=== PATIENT | female | born 1965 | race Caucasian/White ===

== ENCOUNTER → 2023-11-25 13:29 | Outpatient (RCR) | payer BC, SELFPAY ==
[2020-06-24 13:58] VITALS: BP 147/78; PULSE 70; RESP 14; TEMP 36.6; O2SAT 100; BMI 24.7
--- NOTE | 2020-06-24 14:10 | PM.HEMONCCN ---
Subjective - Subjective Chief complaint: Anemia Consult date: 06/24/20 Primary Care Provider: Winnie Pierson NP Medical Summary: Diagnosis: Iron deficiency anemia HPI - Consult Narrative Reason for consult: Iron deficiency anemia Narrative: Jewell Prasad is a 55 year old female with a longstanding history of iron deficiency anemia. She has been on oral iron supplementation for many years. She reached menopause about a year ago and no longer has menstrual periods. She has cut back her iron supplementation to once or twice a week. She reports chronic fatigue but no other symptoms such as exertional chest pain, shortness of breath, palpitation or dizziness. She denies hematochezia or melena. She is over due for her screening colonoscopy. There is no family history of anemia. No family history of GI malignancies. Review of Systems - Constitutional Reports as per HPI, Reports no additional constitutional complaints - Cardiovascular Reports no additional cardiovascular complaints - Respiratory Reports no additional respiratory complaints - Gastrointestinal Reports no additional gastrointestinal complaints PMFSH Medical History: Medical History (Last Updated 06/24/20 @ 07:41 by Winnie Benton) HTN (hypertension) Iron deficiency anemia Family History: Family History (Last Updated 06/24/20 @ 14:04 by Winnie Benton) Father Stroke HTN (hypertension) Paternal Uncle Stroke HTN (hypertension) Sister HTN (hypertension) Sister HTN (hypertension) Mother COPD (chronic obstructive pulmonary disease) Surgical History: Surgical History (Last Updated 06/24/20 @ 14:04 by Winnie Benton) History of ear, nose, and throat (ENT) surgery History of tympanostomy tube placement Social History: Social History (Last Updated 06/24/20 @ 14:04 by Winnie Benton) Alcohol History: Alcohol intake: former Alcohol History Details: Alcohol intake frequency: does not drink Tobacco History: Smoking Status: Never smoker Substance Use History: Use of substances other than those prescribed or required for medical reasons: No Smoking status: Never smoker Home Medications and Allergies Home Medications Medication Instructions Recorded Confirmed Type amlodipine 5 mg PO DAILY 06/24/20 06/24/20 History ferrous sulfate 325 mg PO DAILY 06/24/20 06/24/20 History multivitamin with iron 1 tab PO DAILY 06/24/20 06/24/20 History Allergies Allergy/AdvReac Type Severity Reaction Status Date / Time No Known Allergies Allergy Unverified 12/14/19 15:28 [No Known Allergies*] Physical Exam Vital signs: Vital Signs Temp 97.9 F 06/24/20 13:58 Pulse 70 06/24/20 13:58 Resp 14 06/24/20 13:58 BP 147/78 H 06/24/20 13:58 Pulse Ox 100 06/24/20 13:58 Intake & Output 06/23/20 06/24/20 06/24/20 18:59 06:59 18:59 Other: Weight 55.5 kg [place] Weight in Grams [id number] Weight 55.5 kg - Constitutional Present: no acute distress - Routine HEENT Exam Head: Present: normal inspection Eye: Present: EOMI, PERRL - Routine Neck Exam Absent: lymphadenopathy - Routine Respiratory Exam Present: CTAB - Routine Cardiovascular Exam Cardiovascular: Present: S1, S2 Hem/Onc Consult Result - Labs CBC & Chem 7: 06/24/20 14:23 Assessment and Plan (1) Iron (Fe) deficiency anemia Status: Resolved 1. This is a 55-year-old woman with history of chronic iron deficiency anemia. She was on iron supplementation daily for many years. She now takes oral iron about once or twice a week only since she reached menopause about a year ago. Her blood work today shows normal iron studies and no evidence of anemia. She was encouraged to go for screening colonoscopy. She can stop iron supplementation and can be monitored closely for recurrence of anemia. Follow-up in 3 months.
[2020-06-24 14:24] LABS: MANUAL DIFF FLAG NO
[2020-06-24 14:33] LABS: Basophils Percent Auto 0.8 % (0-2); Eosinophils Percent Auto 0.8 % (0-4); Hemoglobin 12.3 g/dl (12.0-16.0); Imm Gran Abs Auto 0.01 X10*3/uL (0.00-0.03); Imm Gran Pct Auto 0.2 % (0.0-0.4); Lymphocytes Absolute Auto 1.6 X10*3/uL (1.2-4.9); Lymphocytes Percent Auto 31.7 % (20-40); Mean Corpuscular HGB Conc 31.5 g/dl (31.0-35.0); Mean Corpuscular Hemoglobin 27.4 pg (27.0-33.0); Mean Corpuscular Volume 86.9 fL (80-98); Mean Platelet Volume 9.6 fL (9.4-12.3); Monocytes Absolute Auto 0.4 X10*3/uL (0.1-1.2); Monocytes Percent Auto 7.9 % (2-11); Neutrophils Percent Auto 58.6 % (45-73); Platelet Count 287 X10*3/uL (160-400); Red Blood Count 4.49 X10*6/uL (4.20-5.50); Red Cell Distribution Width 12.4 % (11.0-16.0); Retic HGB Equivalent 31.6 pg (30.0-35.0); Reticulocyte Percent 0.7 % (0.5-1.8); Reticulocytes Absolute 0.033 X10*6/uL (0.026-0.095); White Blood Count 5.1 X10*3/uL (4.8-10.8)
--- NOTE | 2020-06-24 14:38 | MHC.HEMONCMA ---
Patient came in for a consult today, states that she is doing well. She states the reason why she is there is because she wants to stop taking iron pills but when she stops her levels drop to low. Clinical summary was reviewed and updated. Patient had labs and will return in 2 months for a follow up. Patient requested to have a letter stating she was here today, she left before I could give it to her. The letter was placed in the mail today.
[2020-06-24 14:53] LABS: Iron 102 mcg/dL (30-160); Percent Iron Saturation 33 % (15-50); Total Iron Binding Capacity 311 mcg/dL (228-428); Unsaturated Iron Binding 209 ug/dL
[2020-06-24 15:14] LABS: Ferritin 87 ng/mL (10-250)
[2020-06-24 15:37] LABS: Folate > 20.0 ng/mL (> or = 4.0); Vitamin B12 363 pg/mL (200-900)
--- NOTE | 2020-07-18 10:54 | HO.HEMONCTE1 ---
[facility] Telehealth - Telehealth Location of Provider rendering services: Office. Location of Patient: Home Patient Identification confirmed using: Name, : Yes Telehealth Method: Telephone Patient verbally consented to treatment: Yes Patient verbally consented to billing insurance company: Yes Patient informed of any privacy concerns related to visit: Yes Medical Summary - Medical Summary Date of Service: 07/18/20 Chief complaint: Scheduled follow-up Medical Summary: Diagnosis: Iron deficiency anemia Interval History Interval history: This is scheduled tele visit for patient, visit was mainly to discuss blood work from her last visit. She is doing well and has no complaints today. Review of Systems - Constitutional Reports no additional constitutional complaints - Cardiovascular Reports no additional cardiovascular complaints - Respiratory Reports no additional respiratory complaints - Gastrointestinal Reports no additional gastrointestinal complaints Home Medications and Allergies Home Medications Medication Instructions Recorded Confirmed Type amlodipine 5 mg PO DAILY 06/24/20 06/24/20 History ferrous sulfate 325 mg PO DAILY 06/24/20 06/24/20 History multivitamin with iron 1 tab PO DAILY 06/24/20 06/24/20 History Allergies Allergy/AdvReac Type Severity Reaction Status Date / Time No Known Allergies Allergy Unverified 12/14/19 15:28 [No Known Allergies*] Exam Vital signs: Vital Signs Temp 97.9 F 06/24/20 13:58 Pulse 70 06/24/20 13:58 Resp 14 06/24/20 13:58 BP 147/78 H 06/24/20 13:58 Pulse Ox 100 06/24/20 13:58 Weight 55.5 kg Body Mass Index 24.7 Narrative: Patient not examined today - Constitutional Present: no acute distress - Routine HEENT Exam Head: Present: normal inspection - Routine Respiratory Exam Present: CTAB - Routine Cardiovascular Exam Cardiovascular: Present: S1, S2 Data - Labs CBC & Chem 7: 06/24/20 14:23 Labs: 06/24/20 14:23 Complete Blood Count Auto Diff Routine Ferritin Routine IRON PROFILE Routine Reticulocyte Count Routine Vitamin B12 and Folate Routine Laboratory Last Values WBC 5.1 X10*3/uL (4.8-10.8) 06/24/20 14:23 RBC 4.49 X10*6/uL (4.20-5.50) 06/24/20 14:23 Hgb 12.3 g/dl (12.0-16.0) 06/24/20 14:23 Hct 39.0 % (37-47) 06/24/20 14:23 MCV 86.9 fL (80-98) 06/24/20 14:23 MCH 27.4 pg (27.0-33.0) 06/24/20 14: MCHC 31.5 g/dl (31.0-35.0) 06/24/20 14: RDW 12.4 % (11.0-16.0) 06/24/20 14:23 Plt Count 287 X10*3/uL (160-400) 06/24/20 14:23 MPV 9.6 fL (9.4-12.3) 06/24/20 14:23 Immature Gran % (Auto) 0.2 % (0.0-0.4) 06/24/20 14: Neut % (Auto) 58.6 % (45-73) 06/24/20 14:23 Lymph % (Auto) 31.7 % (20-40) 06/24/20 14:23 Sargent % (Auto) 7.9 % (2-11) 06/24/20 14:23 Eos % (Auto) 0.8 % (0-4) 06/24/20 14: Baso % (Auto) 0.8 % (0-2) 06/24/20 14:23 Lymph # (Auto) 1.6 X10*3/uL (1.2-4.9) 06/24/20 14:23 Sargent # (Auto) 0.4 X10*3/uL (0.1-1.2) 06/24/20 14:23 Eos # (Auto) 0.0 X10*3/uL (0.0-0.4) 06/24/20 14:23 Baso # (Auto) 0.0 X10*3/uL (0.0-0.2) 06/24/20 14: Abs Immat Gran (auto) 0.01 X10*3/uL (0.00-0.03) 06/24/20 14: Absolute Neuts (auto) 3.0 X10*3/uL (2.0-8.3) 06/24/20 14: Absolute Nucleated RBC 0.000 X10*3/uL (0.0-0.012) 06/24/20 14:23 Nucleated RBC % (auto) 0.0 /100WBC (0.0-0.2) 06/24/20 14:23 Absolute Retic 0.033 X10*6/uL (0.026-0.095) 06/24/20 14:23 Percent Retic 0.7 % (0.5-1.8) 06/24/20 14:23 Immature Retic Fraction 5.0 % (3.0-15.9) 06/24/20 14:23 Retic Hgb Equivalent 31.6 pg (30.0-35.0) 06/24/20 14:23 Iron 102 mcg/dL (30-160) 06/24/20 14:23 TIBC 311 mcg/dL (228-428) 06/24/20 14:23 % Saturation 33 % (15-50) 06/24/20 14:23 Unsat Iron Binding 209 ug/dL 06/24/20 14:23 Ferritin 87 ng/mL (10-250) 06/24/20 14:23 Vitamin B12 363 pg/mL (200-900) 06/24/20 14:23 Folate > 20.0 ng/mL (> or = 4.0) 06/24/20 14:23 Progress Note: A/P (1) Iron (Fe) deficiency anemia Status: Resolved Assessment and plan: 1. This is a 55-year-old postmenopausal woman with history of iron deficiency anemia. Her blood work on the last visit showed resolution of iron deficiency as well as anemia. She was given results and asked to stop taking oral iron supplementation. She no longer is menstruating and therefore does not require to be on iron. She would like a blood work checked again in 6 months. Follow-up in 6 months. I spent 8 minutes on the phone with the patient. - Time Spent With Patient Total time spent is greater than 50% in coordination of care (as documented) at patient's floor/unit and/or counseling patient: less than 15 minutes
--- NOTE | 2020-07-18 14:07 | MHC.HEMONCMA ---
Patient had a telehealth appt today, states she is doing well. Clinical summary was reviewed and updated. Patient did not have labs, but will return in 6 months for a follow up.
== END | disposition home or self-care (01) ==
LOC: HO.ONC 06-24 13:46
PROVIDERS: PCP Nurse Practitioner Family; Visit Provider Internal Medicine
DX: Z86.2 Personal history of diseases of the blood and blood-forming organs and certain disorders involving the immune mechanism (principal)
CPT/HCPCS: 36415; 82607; 82728; 82746; 83540; 85025; 85045; 99202

== ENCOUNTER 2024-09-02 15:18 | Emergency (ER) | payer OTHER, SELFPAY ==
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
[2024-09-02 16:28] VITALS: BP 168/83; PULSE 87; RESP 18; TEMP 37; O2SAT 98; BMI 29.3
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
[2024-09-02 20:59] VITALS: BP 153/91; PULSE 78; RESP 18; TEMP 36.7; O2SAT 98
[2024-09-02 21:40] VITALS: BP 153/91; PULSE 78; RESP 18; TEMP 36.7; O2SAT 98
== END 2024-09-02 21:40 | disposition home or self-care (01) ==
PROVIDERS: Emergency Provider Internal Medicine; PCP Nurse Practitioner Family
DX: T14.90XA Injury, unspecified, initial encounter (principal); V43.62XA Car passenger injured in collision with other type car in traffic accident, initial encounter; Y93.9 Activity, unspecified; Y92.9 Unspecified place or not applicable; Y99.9 Unspecified external cause status; R51.9 Headache, unspecified; M54.2 Cervicalgia
CPT/HCPCS: 70450; 72125; 99284

== ENCOUNTER → 2024-09-02 16:32 | Outpatient (BNV) | payer OTHER, SELFPAY | PROVIDERS: PCP Nurse Practitioner Family; Visit Provider Specialist | DX: M54.2 Cervicalgia (principal); G44.309 Post-traumatic headache, unspecified, not intractable | CPT/HCPCS: 70450; 72125 ==

== ENCOUNTER 2025-03-26 12:36 | Emergency (ER) | payer OTHER, SELFPAY ==
--- NOTE | ~2025-03-26 | CT_ITS ---
CLINICAL HISTORY: right renal colic vs pyelo CT abdomen and pelvis without contrast Comparison: None provided Findings: Limited evaluation without intravenous contrast. No consolidation or effusion. The gallbladder is within normal limits. No biliary ductal dilatation. Unenhanced liver, spleen and pancreas within normal limits. 1.4 cm low-attenuation left adrenal lesion suggestive of an adenoma. Right adrenal is unremarkable. No renal or ureteral stones and no hydronephrosis or hydroureter. No perinephric stranding or perinephric fluid. No bowel obstruction, pneumoperitoneum, or pneumatosis. Normal appendix. Uterus and urinary bladder within normal limits. 6.8 cm x 5 cm left adnexal cyst. Mild pelvic free fluid. No aneurysm of the abdominal aorta No acute fracture. Diffuse demineralization. IMPRESSION: 1. No renal or ureteral stones. 2. No perinephric stranding but pyelonephritis not excluded without intravenous contrast. 3. Normal appendix. 4. 6.8 cm x 5 cm left pelvic cyst likely originating from the left ovary. Further evaluation could be obtained with pelvic ultrasound as indicated. 5. Nonspecific mild pelvic free fluid. This document has been electronically signed by: Amparo Daugherty MD on 03/26/2025 22:59:34
[2025-03-26 13:38] VITALS: BP 159/88; PULSE 107; RESP 18; TEMP 36.9; O2SAT 98; BMI 25.6
--- NOTE | 2025-03-26 13:39 | ED_ITS ---
HPI - General Adult General Chief complaint: General Medical Stated complaint: antibiotic reaction Time Seen by Provider: 03/26/25 20:26 Source: patient Limitations: no limitations History of Present Illness ED Provider: Alayna Corona PA-C HPI narrative: 59-year-old female with a history of hypertension, and iron deficiency anemia, with known UTI, presents with abdominal pain. Patient states she was prescribed Macrobid for her urinary tract infection, she developed an allergic reaction, she discontinue the medication. Over the past day, she has been having pain in the lower abdomen, with nausea vomiting and objective fevers at home. Denies back pain. Denies history of kidney stones. Related Data Home Medications ?Medication ?Instructions ?Recorded ?Confirmed amlodipine 5 mg tablet 5 mg PO DAILY 06/24/2006/24 ferrous sulfate 325 mg (65 mg 325 mg PO DAILY 06/24/20 06/24/20 iron) tablet multivitamin with iron 1 tab PO DAILY 06/24/2005/28 Previous Rx's ?Medication ?Instructions ?Recorded cephalexin 500 mg capsule 500 mg PO Q12H #13 caps 02/27 12/21 ketorolac 10 mg tablet 10 mg PO Q6H PRN pain #20 ta bs 03/26/25 phenazopyridine 200 mg tablet 200 mg PO TID PRN pain # 10 tabs 03/26/25 (Pyridium) Allergies Allergy/AdvReac Type Severity Reaction Status Date / Time nitrofurantoin (From Allergy Unknown Verified 03/26/25 13:40 Macrobid) Review of Systems 2 Review of Systems: Yes all other systems are reviewed and are negative Constitutional: Constitutional: Reports fatigue and Reports fever(s) Cardiovascular: Cardiovascular: Denies chest pain and Denies dyspnea Respiratory: Respiratory: Denies dyspnea Gastrointestinal: Gastrointestinal: Reports abdominal pain, Reports nausea and Reports vomiting Genitourinary: Genitourinary: Reports dysuria and Denies flank pain Musculoskeletal: Musculoskeletal: Denies back pain Endocrine: Endocrine: Reports fatigue PMFSH Past Medical History Attestation statement: The following information was validated with the patient. Medical History Iron deficiency anemia HTN (hypertension) Surgical History History of tympanostomy tube placement History of ear, nose, and throat (ENT) surgery Family History Family History Father Stroke HTN (hypertension) Paternal Uncle Stroke HTN (hypertension) Sister HTN (hypertension) Sister HTN (hypertension) Mother COPD (chronic obstructive pulmonary disease) Social History Social History Alcohol intake: former Physical Exam ED Vital Signs: Vital Signs - 24 hr 03/26/25 13:38 03/26/25 20:36 03/26/25 23:13 Temperature 98.5 F 98.1 F 97.9 F Pulse Rate 107 H 92 88 Respiratory Rate 18 18 16 Blood Pressure 159/88 H 132/84 148/74 H Pulse Oximetry 98 100 97 Oxygen Delivery Method Room Air Room Air Room Air BMI result Body Mass Index 25.6 Const Other: Alert, overall well-appearing Orientation/consciousness: patient oriented x3 Resp Effort & Inspection: normal respiratory effort Cardio Other: Normal peripheral perfusion GI Other: Soft, mild tenderness over suprapubic region without guarding General: Yes no CVA tenderness Back/Spine/Pelvis Back: no CVA tenderness Skin Other: Warm dry no rash Neuro General: patient oriented x3, gait normal, no focal motor deficits and CN's II- XI intact bilaterally Psych Other: Cooperative Course Course Course Narrative: Rapid medical examination performed in triage by Tracey Biggs PA-C: Patient is a 59 year old female presenting to the emergency department with fever, chills, right lower quadrant abdominal pain. Patient states she was recently diagnosed with UTI and prescribed a medication she was allergic to (Macrobid). Detailed physical exam and review of systems are deferred to the circus roustabout. Labs and swabs] ordered. Patient placed back in the waiting room pending room availability and results. Medications Administered Discontinued Medications Generic Name Dose Route Start Last Admin Trade Name Freq PRN Reason Stop Dose Admin Sodium Chloride 1,000 mls @ 999 mls/hr 03/26/25 21:15 03/26/25 22:26 Ns IV 03/26/25 22:15 Infused .Q1H1M NORA Infusion Ceftriaxone Sodium 2 gm/ 50 mls @ 100 mls/hr 03/26/25 21:10 03/26/25 22:26 Sodium Chloride IV 03/26/25 21:39 Infused ONCE ONE Infusion Ketorolac Tromethamine 15 mg 03/26/25 21:10 03/26/25 21:26 Ketorolac Tromethamine 15 Mg/Ml Vial IVPUSH 03/26/25 21:11 15 mg ONCE ONE Administration Phenazopyridine HCl 200 mg 03/26/25 21:10 03/26/25 21:29 Phenazopyridine Hcl 200 Mg Tablet PO 03/26/25 21:11 200 mg ONCE ONE Administration Medical Decision Making Medical Decision Making MDM Narrative: 59-year-old female with a history of hypertension, and iron deficiency anemia, with known UTI, presents with abdominal pain. Patient states she was prescribed Macrobid for her urinary tract infection, she developed an allergic reaction, she discontinue the medication. Over the past day, she has been having pain in the lower abdomen, with nausea vomiting and objective fevers at home. Denies back pain. Denies history of kidney stones. Problem: Known UTI History: Per patient I have considered the following differential diagnoses: Urinary tract infection, renal colic, pyelonephritis Plan: The patient has systemic symptoms, I am concerned for an obstructing kidney stone versus pyelonephritis, however, it is reassuring that she has stone CVA tenderness. Given report of fever, with a leukocytosis and her associated symptoms, I am scanning her abdomen. We will obtain blood cultures and a lactic, starting IV antibiotics, giving fluid and medication for her pain and nausea. This is not sepsis today, she is afebrile she is not tachycardic, her vitals are stable I have independently reviewed the following tests: Labs: Leukocytosis of 15.4 with left shift, not anemic, no electrolyte abnormality, lactic 0.9, urine is infected, viral panel neg CT abd: MPRESSION: 1. No renal or ureteral stones. 2. No perinephric stranding but pyelonephritis not excluded without intravenous contrast. 3. Normal appendix. 4. 6.8 cm x 5 cm left pelvic cyst likely originating from the left ovary. Further evaluation could be obtained with pelvic ultrasound as indicated. 5. Nonspecific mild pelvic free fluid. Differential Diagnosis Differential Diagnoses: The differential diagnosis associated with the presentation includes See [facility] Admission/Observation Consideration of admission/observation: Escalation of care including admission/observation considered Not applicable Lab Data [facility] Lab Attestation statement: I reviewed the patient's lab results. 03/26/25 14:32 03/26/25 14:32 Labs: Lab Results 03/26/25 03/26/25 03/26/25 Range/Units 14:32 20:35 22:30 WBC 15.4 H (4.8-10.8) X10*3/uL RBC 4.52 (4.20-5.50) X10*6/uL Hgb 12.4 (12.0-16.0) g/dl Hct 38.3 (37.0-47.0) % MCV 84.7 (80.0-98.0) fL MCH 27.4 (27.0-33.0) pg MCHC 32.4 (31.0-35.0) g/dl RDW 13.1 (11.0-16.0) % Plt Count 295 (160-400) X10*3/uL MPV 9.7 (9.4-12.3) fL Immature Gran % (Auto) 0.6 H (0.0-0.4) % Neut % (Auto) 87.1 H (45-73) % Lymph % (Auto) 3.6 L (20-40) % Gage % (Auto) 7.8 (2-11) % Eos % (Auto) 0.5 (0-4) % Baso % (Auto) 0.4 (0-2) % Lymph # (Auto) 0.6 L (1.2-4.9) X10*3/uL Gage # (Auto) 1.2 (0.1-1.2) X10*3/uL Eos # (Auto) 0.1 (0.0-0.4) X10*3/uL Baso # (Auto) 0.1 (0.0-0.2) X10*3/uL Abs Immat Gran (auto) 0.09 H (0.00-0.03) X10*3/uL Absolute Neuts (auto) 13.5 H (2.0-8.3) x10*3/uL Absolute Nucleated RBC 0.000 (0.0-0.012) X10*3/uL Nucleated RBC % (auto) 0.0 (0.0-0.2) /100WBC Sodium 141 (135-145) mmol/L Potassium 3.6 (3.3-5.1) mmol/L Chloride 105 (96-108) mmol/L Carbon Dioxide 28 (22-29) mmol/L Anion Gap 12 (12-20) BUN 13 (9-16) mg/dL Creatinine 0.68 (0.5-1.4) mg/dL Estim Creat Clear Calc 69.7 Estimated GFR > 60 Random Glucose 106 (60-115) mg/dL Lactic Acid 0.9 (0.5-2.0) mmol/L Calcium 9.9 (8.4-10.2) mg/dL Magnesium 1.9 (1.6-2.6) mg/dL Total Bilirubin 0.4 (0.0-1.0) mg/dL AST 39 H (5-31) U/L ALT 24 (0-31) U/L Alkaline Phosphatase 85 (39-117) U/L Total Protein 7.7 (6.5-8.0) g/dL Albumin 4.6 (3.5-5.0) g/dL Beta HCG, Quant < 2 mIU/mL Urine Color Yellow Urine Appearance Clear Urine pH 6.0 (5.0-9.0) Ur Specific [place] 1.015 (1.005-1.025) Urine Protein 30 (1+) H (Neg-Trace) mg/dL Urine Glucose (UA) Negative (Negative) mg/dL Urine Ketones Trace (Negative) mg/dL Urine Blood Trace H (Negative) Urine Nitrite Negative (Negative) Ur Leukocyte Esterase Small (1+) H (Negative) Urine RBC 6-10 H (0-2) /HPF Urine WBC 21-50 H (0-5) /HPF Ur Squamous Epith Cells >20 (0-2) /HPF Urine Bacteria None Seen (None Seen) Hyaline Casts 3-5 (0-2) /LPF Influenza Type A (PCR) NEGATIVE (Negative) Influenza Type B (PCR) NEGATIVE (Negative) RSV RNA Qual (PCR) NEGATIVE (Negative) SARS-CoV-2 RNA (RT-PCR) NEGATIVE (Negative) Radiology Impression Discussion of test interpretation with radiology: I have reviewed the radiologist's reading. Discharge Plan Discharge Clinical Impression: Urinary tract infection, Ovarian cyst Patient Disposition: Home, Self-Care Instructions: Ovarian Cyst (ED), Urinary Tract Infection in Women (ED) Additional Instructions: CT scan revealed no kidney stone or kidney infection. You are being treated for urinary tract infection. Take the cephalexin as directed, complete the course of the antibiotic. Use the Pyridium as needed for urinary pain. Use the ketorolac as needed for pain. Take that medication with food. You were incidentally found to have an ovarian cyst on the left. Call your sales merchandising specialist, you require a transvaginal ultrasound as an outpatient. Prescriptions: New ketorolac 10 mg tablet 10 mg PO Q6H PRN (Reason: pain) Qty: 20 0RF Rx Instructions: maximum total duration of 5 days from all oral, intranasal, or parenteral formulations, patient received an IV dose of Toradol here in the emergency room phenazopyridine [Pyridium] 200 mg tablet 200 mg PO TID PRN (Reason: pain) Qty: 10 0RF cephalexin 500 mg capsule 500 mg PO Q12H Qty: 13 0RF No Action amlodipine 5 mg Tablet 5 mg PO DAILY ferrous sulfate 325 mg (65 mg iron) Tablet 325 mg PO DAILY multivitamin with iron Tablet 1 tab PO DAILY Stand Alone Forms: Work/School Release Interventions: ED Discharge Assessment Last Done: 03/26/25 23:45 Discharge Date/Time: 03/26/25 23:47 Print Language: [place]
[2025-03-26 14:37] LABS: MANUAL DIFF FLAG NO
[2025-03-26 14:44] LABS: Hematocrit 38.3 % (37.0-47.0); Hemoglobin 12.4 g/dl (12.0-16.0); Imm Gran Abs Auto 0.09 X10*3/uL (0.00-0.03); Imm Gran Pct Auto 0.6 % (0.0-0.4); Lymphocytes Absolute Auto 0.6 X10*3/uL (1.2-4.9); Mean Corpuscular HGB Conc 32.4 g/dl (31.0-35.0); Mean Corpuscular Hemoglobin 27.4 pg (27.0-33.0); Mean Corpuscular Volume 84.7 fL (80.0-98.0); NRBC Abs Auto 0.000 X10*3/uL (0.0-0.012); NRBC Pct Auto 0.0 /100WBC (0.0-0.2); Platelet Count 295 X10*3/uL (160-400); Red Blood Count 4.52 X10*6/uL (4.20-5.50); White Blood Count 15.4 X10*3/uL (4.8-10.8)
[2025-03-26 14:55] LABS: Alanine Aminotransferase 24 U/L (0-31); Albumin Level 4.6 g/dL (3.5-5.0); Alkaline Phosphatase 85 U/L (39-117); Anion Gap 12 (12-20); Aspartate Amino Transferase 39 U/L (5-31); Blood Urea Nitrogen 13 mg/dL (9-16); Calcium 9.9 mg/dL (8.4-10.2); Carbon Dioxide 28 mmol/L (22-29); Chloride 105 mmol/L (96-108); Creatinine Clr Calc Pharmacy 69.7; Estimated Glomerular Filt Rate > 60; Magnesium 1.9 mg/dL (1.6-2.6); Potassium 3.6 mmol/L (3.3-5.1); Sodium 141 mmol/L (135-145); Total Protein 7.7 g/dL (6.5-8.0)
[2025-03-26 15:16] LABS: Resp Syncy Virus RNA Qual PCR NEGATIVE (Negative); SARS COV2 PCR INHOUSE NEGATIVE (Negative)
[2025-03-26 20:36] VITALS: BP 132/84; PULSE 92; RESP 18; TEMP 36.7; O2SAT 100
[2025-03-26 20:43] LABS: Appearance Urine Clear; Glucose Urine UA Negative (Negative); PH 6.0 (5.0-9.0); Specific Gravity - Urine 1.015 (1.005-1.025); UMIC TRIGGER UACC YES
[2025-03-26 20:48] LABS: UACC Culture Trigger YES
--- NOTE | 2025-03-26 21:31 | PC.NURSE ---
Iv placed, medicated per mar, warm blanket given.
--- NOTE | 2025-03-26 22:32 | PC.NURSE ---
provider aware, antibiotic given prior to blood culture and lactic, pt is not septic work up.
[2025-03-26 23:13] VITALS: BP 148/74; PULSE 88; RESP 16; TEMP 36.6; O2SAT 97
[2025-03-26 23:45] VITALS: BP 148/74; PULSE 88; RESP 16; TEMP 36.6; O2SAT 97
== END 2025-03-26 23:47 | disposition home or self-care (01) ==
PROVIDERS: Physician Assistant Medical; Emergency Provider Emergency Medicine; PCP Nurse Practitioner Family
DX: N39.0 Urinary tract infection, site not specified (principal); N83.202 Unspecified ovarian cyst, left side; R11.0 Nausea; R10.20 Pelvic and perineal pain unspecified side; Z03.818 Encounter for observation for suspected exposure to other biological agents ruled out; Z79.899 Other long term (current) drug therapy
CPT/HCPCS: 36415; 74176; 80053; 81001; 83605; 83735; 84702; 85025; 87040; 87086; 87637; 96361; 96365; 96375; 99284; J0696; J1885

== ENCOUNTER → 2025-03-26 21:10 | Outpatient (BNV) | payer OTHER, SELFPAY | PROVIDERS: Emergency Provider Emergency Medicine; PCP Nurse Practitioner Family; Visit Provider Specialist | DX: N83.202 Unspecified ovarian cyst, left side (principal) | CPT/HCPCS: 74176 ==